=== PATIENT | male | born 1990 | race Caucasian/White ===

== ENCOUNTER 2016-11-02 10:01 | Inpatient (IN) ==
[~2016-11-02 10:01] MED LIST: *HR* FentaNYL (PF) 100 MCG/2 ML VIAL ONE; *HR* Midazolam HCl 2 MG/2 ML VIAL ONE; *HR* Succinylcholine 200 MG/10 ML VIAL IVP ONE; Lidocaine -MPF 2% 2 ML VIAL ONE; Lidocaine -MPF 4% 5 ML AMPUL ONE
[2016-11-02] MEDS ORDERED: CeFAZolin Pre 2,000 MG/100 ML 2,000 MG/100 ML BAG IVPB ONE (10:19)
--- NOTE | 2016-11-02 10:24 | Anesthesia Evaluation PreOp ---
Date of Encounter: 11/02/16 Time of Encounter: 10:22 - Past History Planned Operation: PLIF L5-S1 Cardiac History: Denies any Significant Hx Pulmonary History: Other (uses snuff) PROOF CLERK History: Other (chronic back pain) Other Medical History: GERD (improved S/P Jaycob), Other (anxiety) Anesthesia History: No Prior Anesthetic Complications, Past Anesthesia (Robotic Lap Jaycob) Alcohol Use: occasionally Drug use: none Medications and Allergies Gabapentin [Neurontin] 800 mg PO TID 06/17/16 [History] Cyclobenzaprine [Flexeril] 10 mg PO TID #21 tablet 09/14/16 [Rx] Allergies No Known Allergies Allergy (Verified 10/19/16 08:56) - Meds/Allergy Pre-op Review Medications Reviewed: Yes Allergies Reviewed: Yes Beta Blockers on Current Med List: No Anesthesia Results - Labs Laboratory Tests 10/27/16 10/27/16 10/27/16 13:13 13:13 13:13 WBC 7.1 Hgb 16.1 Hct 47.3 Plt Count 303 PT 11.6 INR 1.1 APTT 29.5 Sodium 140 Potassium 4.0 BUN 9 Creatinine 0.86 Anesthesia Exam O2 Sat Height 1.68 m Height 1.68 m Weight 51.71 kg Weight 51.71 kg O2 Sat by Pulse Oximetry 100 Vital Signs Temp Pulse Resp BP Pulse Ox 97.8 F 70 18 134/94 100 11/02/16 10:17 11/02/16 10:17 11/02/16 10:17 11/02/16 10:17 11/02/16 10:17 Height: 5'6'' Weight: 114 lbs NPO (# of Hours): 8 Pain Scale: 4 Pain Scale Used: Numeric (1 - 10) - HEENT Pupil (Motor): EOMI Mallampati: II Teeth: Normal Oral Opening: Greater than 3 - PROOF CLERK LOC: Oriented PROOF CLERK Motor: Normal RUE, Normal LUE, Normal RLE, Normal LLE, Normal Face PROOF CLERK Sensory: Normal: RUE, LUE, Face, Deficit: RLE, LLE - Cardiac Rhythm: Regular Murmur: None - Pulmonary Breath Sounds: bilateral Clear Respiratory Effort: Symmetrical Anesthesia Assess/Plan ASA Score: 2 Modified [place] Scale for Level of Consciousness: Cooperative, oriented, and tranquil Anesthetic Plan: General Monitoring Plan: Standard Monitors Recovery Plan: PACU
[2016-11-02] MEDS ORDERED: Ringers Solution, Lactated 1,000 ML IVC SCH ×2 (10:30→16:44)
--- NOTE | 2016-11-02 11:25 | History & Physical Report ---
Date of Encounter: 11/02/16 Time of Encounter: 11:24 24 Hour HP Update - Instructions Instructions: If the History and Physical is less than 30 days old and was completed prior to A.M. admission and or procedure and has NOT been updated on calendar day of procedure please complete this update prior to performing procedure. - Update Patient reports changes in Medical Condition: No Changes in examination, assessment, or condition: No Changes in Medication: No Preop tests/diagnostics Reviewed: Yes Pre-Op MRSA Screen: Negative Surgery Remains Indicated: Yes Consent for Planned Operative Procedure(s) Verified: Yes - Pre-Operative Checklist Preoperative Checklist Indicated: No Prophylactic Antibiotic Ordered: Yes Home Medications Include Beta Luci: No Beta Luci Taken Today (Day of Surgery): No Beta Luci Taken Yesterday (Day Prior to Surgery): No Is VTE Prophylaxis Indicated?: Yes
[2016-11-02] MEDS ORDERED: Acetaminophen IV 1,000 MG/100 ML INFUS..BTL IVPB ONE (11:49)
[2016-11-02] MEDS ORDERED: Famotidine 20 MG/2 ML VIAL IVP ONE (11:49)
[2016-11-02] MEDS ORDERED: Gabapentin 300 MG CAPSULE PO STA (11:49)
[2016-11-02] MEDS ORDERED: *HR* Succinylcholine 200 MG/10 ML VIAL IVP ONE (12:30)
[2016-11-02] MEDS ORDERED: *HR* Midazolam HCl 2 MG/2 ML VIAL ONE (12:30)
[2016-11-02] MEDS ORDERED: Lidocaine -MPF 4% 5 ML AMPUL ONE ×2 (12:30)
[2016-11-02] MEDS ORDERED: Lidocaine -MPF 2% 2 ML VIAL ONE (12:30)
[2016-11-02] MEDS ORDERED: *HR* FentaNYL (PF) 100 MCG/2 ML VIAL ONE (12:30)
[2016-11-02] MEDS ORDERED: *HR* Propofol 200 MG/20 ML VIAL IVP ONE ×2 (12:31→12:33)
[2016-11-02] MEDS ORDERED: *HR* Rocuronium Bromide 50 MG/5 ML VIAL ONE (13:14)
[2016-11-02] MEDS ORDERED: *HR* Remifentanil 1 MG VIAL IVP ONE (13:17)
[2016-11-02] MEDS ORDERED: Neostigmine Methylsulfate 3 MG/3 ML SYRINGE ONE (14:01)
[2016-11-02] MEDS ORDERED: Dexamethasone 4 MG/ML VIAL ONE (14:56)
[2016-11-02] MEDS ORDERED: Ondansetron 4 MG/2 ML VIAL ONE (14:56)
[2016-11-02] MEDS ORDERED: *HR* Promethazine 25 MG/ML VIAL IVP PRN (15:10)
[2016-11-02] MEDS ORDERED: *HR* Labetalol 20 MG/4 ML SYRINGE IVP PRN (15:10)
--- NOTE | 2016-11-02 15:28 | Orthopedic Operative Note ---
Date of procedure: 11/02/16 Pre-op diagnosis: Spondylolisthesis, lumbar stenosis Post-op diagnosis: same Operation/Findings: Posterior lumbar interbody fusion L5-S1: The patient successfully underwent general endotracheal anesthesia. The patient was given antibiotics prior to the start of the procedure. Compression boots and stockings were used for deep vein thrombosis prophylaxis. A Winchester catheter was placed. Leads for neuro monitoring were placed on the upper and lower extremities. This included the cranium. The neuro monitoring personnel confirmed there were satisfactory readings prior to the start of the procedure. The patient was turned prone on the Tom table. The back was prepped and draped in the usual sterile fashion. An incision was was marked and centered over the involved L5-S1 levels in the mid line. The incision was deepened through the lumbar fascia. Bovie cautery and Duckworth elevators were used to reflect the paraspinal musculature at the lateral extent of the transverse processes of the involved L5 -S1 levels. Eloisa clamps were placed over the L5 spinous processes. An intraoperative lateral fluoroscopy graft was obtained. A conversation was held between the surgeon and radiologist and both confirmed we had the correct L5-S1 operative levels. We then placed pedicle screws in standard fashion with the aid of fluoroscopy and anatomic landmarks. Briefly a starter awl was used. A gearshift was subsequently used to enter the airplane pilot crop dusting hole via a transpedicular route into the vertebral body. The airplane pilot crop dusting hole was tapped with an undersized instrument, and subsequently four 6.5 x 40 mm pedicle screws were placed bilaterally at the indicated L5 and S1 levels. The screws were tested with the aid of the neurologic monitoring staff via pedicle screw stimulation. All reading suggested there was no significant cortical wall breech. The screws were also evaluated fluoro- graphically and appeared to be in satisfactory position. We then turned our attention to the decompression portion of the procedure. We removed the supraspinous and interspinous ligaments and subsequently the insertion of the ligamentum flavum on the undersurface of the proximal L5 lamina was dislodged with a curette. We then removed the ligamentum flavum as well as undercut the L5-S1 facets at this level to decompress the lateral recesses. We also performed a full Abbasi laminectomy. After the decompression , which was over and above that which was required to place the interbody graft, the foramen and traversing roots at this L5-S1 level were found to be free and patent. We then protected the neural elements including the thecal sac and traversing nerve root on the right with a dural retractor. We made an annulotomy into the L5-S1 disc space and then removed entire disc material using Pituitary instruments. We trialed various size grafts after the endplates were prepared for graft insertion. A 10 x 26 enter body graft fit well within the L5-S1 disc space. We obtained some bone from the right posterior superior iliac spine through us a separate incision and combined with this with the bone which we had saved from the Abbasi laminectomy portion of the procedure. This autograft bone was first placed in the anterior portion of the L5-S1 disc space and additional bone was placed within the interbody graft spacer. We then placed the interbody graft spacer obliquely across the disc space towards the midline while protecting the neural elements with a root retractor. When the graft was found to be in satisfactory position the nutrition aides teacher was removed. We then copiously irrigated the wound. We then decorticated the L5 transverse processes as well as the facet joints and proximal portion of the sacrum of the involved levels to aid in the posterolateral fusion. We placed autograft bone in the lateral gutters over these regions. We then placed rods within the screw heads of the involved L5 and S1 levels and first locked the distal screws and then subsequently locked the proximal screws so as to improve and reduce the spondylolisthesis previously seen. We then closed the wound in layers with 1 Vicryl for the fascia, 2-0 Vicryl. Subcutaneous tissue, and Dermabond was used for skin closure. Sterile dressings were placed over the wound. The patient was turned supine on a hospital bed and extubated. All sponge instruments and needle counts were correct at the end of the procedure. The patient tolerated the procedure well without complications. Anesthesia: GETA Surgeon: Umair Benavidez Jr Estimated blood loss (cc): 100 Condition: stable Disposition: PACU
[2016-11-02] MEDS: *HR* HYDROmorphone (PF) 1 MG/ML SYRINGE IVP PRN ×4 (15:45→16:15)
[2016-11-02] MEDS ORDERED: *HR* HYDROmorphone (PF) 1 MG/ML SYRINGE ONE ×2 (15:46→16:00)
[2016-11-02] MEDS ORDERED: Ketorolac 30 MG/ML VIAL ONE (15:50)
--- NOTE | 2016-11-02 16:19 | Anesthesia Evaluation Post Op ---
Date of Encounter: 11/02/16 Time of Encounter: 16:18 - Vital Signs Vital Signs: Vital Signs/O2 Sat, Most Current Temp Pulse Resp BP Pulse Ox 97.9 F 104 16 122/96 99 11/02/16 15:37 11/02/16 15:57 11/02/16 15:57 11/02/16 15:57 11/02/16 15:57 - Lungs Lungs: Clear Ascult./Percussion - Airway Airway: Non-obstructed - Cardiovascular Regular Rate - Mental Status Mental Status: Alert & Oriented, Answers Appropriately - Pain Pain Scale: 5 Pain Scale used: Numeric (1 - 10) - Nausea Vomiting Nausea Vomiting: Not Present - Hydration Hydration: Ice chips, Has not voided - Discharge PostOp Status: Transfer Patient to floor
[2016-11-02] MEDS ORDERED: Ketorolac 30 MG/ML VIAL IVP ONE (16:24)
[2016-11-02] MEDS ORDERED: *HR* OxyCODONE Immed Rel 5 MG TABLET PO SCH (16:44)
[2016-11-02] MEDS ORDERED: Naloxone 0.4 MG/ML INJ IVP PRN (16:44)
[2016-11-02] MEDS ORDERED: Ondansetron 4 MG/2 ML VIAL IVP PRN (16:44)
[2016-11-02] MEDS: *HR* OxyCODONE Immed Rel 5 MG TABLET PO PRN ×2 (17:18→21:19)
[2016-11-02] MEDS: *HR* Morphine 2 MG/ML SYRINGE IVP PRN (19:16)
[2016-11-02] MEDS ORDERED: ceFAZolin 2,000 MG in D5% in Water 100 ML IVPB SCH (20:30)
[2016-11-02] MEDS: Vancomycin 1,000 MG in D5% in Water 250 ML IVPB SCH (23:03)
[2016-11-03] MEDS: *HR* Morphine 2 MG/ML SYRINGE IVP PRN ×6 (00:39→23:53)
[2016-11-03] MEDS: *HR* OxyCODONE Immed Rel 5 MG TABLET PO PRN ×5 (04:20→22:06)
[2016-11-03] MEDS: Vancomycin 1,000 MG in D5% in Water 250 ML IVPB SCH (08:45)
--- NOTE | 2016-11-03 09:17 | Orthopedics Progress Note ---
<Umair Benavidez Jr - Last Filed: 11/03/16 13:16> Date of Encounter: 11/03/16 Time of Encounter: 13:16 Subjective Interval history: The patient is without complaints. Afebrile vital signs are stable. Incision is clean dry and intact. Neurovascularly intact with regard to bilateral lower extremities. Fires all upper and lower extremity motor groups. Negative straight leg raise. Assessment :stable. Plan mobilize ,continue analgesics, discharge planning. Objective Vital signs: Vital Signs Temp Pulse Resp BP Pulse Ox 11/03/16 11:25 98.6 F 78 16 132/82 97 11/03/16 06:38 98.5 F 93 16 124/76 98 11/03/16 05:08 98.7 F 88 16 120/79 98 11/02/16 23:51 97.8 F 105 18 143/92 98 11/02/16 20:00 98.0 F 103 18 136/93 98 11/02/16 18:41 98.4 F 100 16 134/91 97 11/02/16 17:59 98.6 F 99 16 134/89 98 11/02/16 17:28 97.7 F 88 16 148/99 98 11/02/16 16:56 97.4 F L 75 16 131/90 97 11/02/16 16:37 97.8 F 71 16 123/95 100 11/02/16 16:27 70 16 134/87 100 11/02/16 16:17 79 16 123/88 100 11/02/16 16:07 97.9 F 96 16 132/96 99 11/02/16 15:57 104 16 122/96 99 11/02/16 15:47 108 16 136/75 99 11/02/16 15:37 97.9 F 104 16 111/77 99 Intake and Output 11/02/16 11/03/16 11/03/16 23:59 07:59 15:59 Intake Total 750 / 750 450 / 450 Output Total 200 / 200 1550 / 1550 Balance -200 / -200 -800 / -800 450 / 450 Intake: IV Fluids 250 / 250 250 / 250 Vancocin 1,000 MG In 250 / 250 250 / 250 Dextrose 5% 250 ML @ 167 mls/hr IVPB Q12H [facility] Rx#: [id number] Oral 500 / 500 200 / 200 Output: Urine 200 / 200 1550 / 1550 Other: Meal Breakfast Percent of Meal Consumed 50% Consult Discharge Plan - Plan Referrals: Brad Juarez, IN PROCESSING INSTRUCTOR [Primary Care Provider] - <Mabel Herbert - Last Filed: 11/04/16 10:23> Date of Encounter: 11/03/16 Time of Encounter: 12:00 - Assessment and Plan (1) Spondylolisthesis Current Visit: Yes Status: Chronic Qualifiers: Spinal region: unspecified Qualified Code(s): M43.10 - Spondylolisthesis, site unspecified (2) Lumbar stenosis Current Visit: Yes Status: Chronic Subjective Principal diagnosis: Spondylolisthesis, lumbar stenosis Interval history: POD#1 Posterior lumbar interbody fusion L5-S1 performed 11/02/[address] Benavidez for Spondylolisthesis, lumbar stenosis. Patient seen and examined. Incision c/d/ i. Neurovascualrly intact. Patient wearing back brace as directed. States pain control adequate. Discharge planning will be discussed more in depth on POD#2 after full therapy evaluation. Patient questions answered. Objective Vital signs: Vital Signs Temp Pulse Resp BP Pulse Ox 11/03/16 06:38 98.5 F 93 16 124/76 98 11/03/16 05:08 98.7 F 88 16 120/79 98 11/02/16 23:51 97.8 F 105 18 143/92 98 11/02/16 20:00 98.0 F 103 18 136/93 98 11/02/16 18:41 98.4 F 100 16 134/91 97 11/02/16 17:59 98.6 F 99 16 134/89 98 11/02/16 17:28 97.7 F 88 16 148/99 98 11/02/16 16:56 97.4 F L 75 16 131/90 97 11/02/16 16:37 97.8 F 71 16 123/95 100 11/02/16 16:27 70 16 134/87 100 11/02/16 16:17 79 16 123/88 100 11/02/16 16:07 97.9 F 96 16 132/96 99 11/02/16 15:57 104 16 122/96 99 11/02/16 15:47 108 16 136/75 99 11/02/16 15:37 97.9 F 104 16 111/77 99 11/02/16 10:17 97.8 F 70 18 134/94 100 Intake and Output 11/02/16 11/03/16 11/03/16 23:59 07:59 15:59 Intake Total 750 / 750 Output Total 200 / 200 1550 / 1550 Balance -200 / -200 -800 / -800 Intake: IV Fluids 250 / 250 Vancocin 1,000 MG In 250 / 250 Dextrose 5% 250 ML @ 167 mls/hr IVPB Q12H [facility] Rx#: [id number] Oral 500 / 500 Output: Urine 200 / 200 1550 / 1550 - VTE Documentation of Mechanical Device: Graduated compression elastic hosiery
[2016-11-03] MEDS: diazePAM 5 MG TABLET PO PRN (19:05)
[2016-11-04] MEDS: diazePAM 5 MG TABLET PO PRN ×2 (00:40→23:01)
[2016-11-04] MEDS: *HR* OxyCODONE Immed Rel 5 MG TABLET PO PRN ×5 (03:44→22:12)
[2016-11-04] MEDS: *HR* Morphine 2 MG/ML SYRINGE IVP PRN ×4 (06:12→19:42)
--- NOTE | 2016-11-04 10:42 | Discharge Summary ---
Date of Encounter: 11/04/16 Time of Encounter: 10:40 - Discharge Medications Prescriptions: OxyCODONE Immed Rel [Roxicodone 5 MG] 5 mg PO Q4HR PRN #60 tab PRN Reason: Pain Home Medications: Gabapentin [Neurontin] 800 mg PO TID 06/17/16 [History] Cyclobenzaprine [Flexeril] 10 mg PO TID #21 tablet 09/14/16 [Rx] OxyCODONE Immed Rel [Roxicodone 5 MG] 5 mg PO Q4HR PRN #60 tab 11/04/16 [Rx] Allergies/Adverse Reactions: Allergies No Known Allergies Allergy (Verified 10/19/16 08:56) - Impressions ITS Impressions Lumbar Spine X-Ray 11/02/16 00:00 IMPRESSION: Height and alignment appear to be within normal limits. Orthopedic hardware appears grossly intact on limited imaging. D/ / 11/02/2016 15:41:15 Dany Arellano MD / [facility] Interpreting Provider: Dany Arellano MD Lumbar Spine X-Ray 11/04/16 08:29 IMPRESSION: Stable postsurgical changes at L5-S1. No acute osseous abnormality. Moderate amount of gas is seen throughout the small bowel and colon, likely related to postoperative ileus. D/ / Corinne Ladd MD / Corinne Ladd MD Interpreting Provider: Corinne Ladd MD Date of admission: 11/02/16 16:45 Primary care physician: Brad Juarez CNP Consults: 11/02/16 16:44 Consult to Occupational Therapy [CONS] Routine Comment: Evaluate, develop and implement POC Reason for Consult: Postoperative Consult to Physical Therapy [CONS] Routine Comment: Evaluate, develop and implement POC Reason for Consult: Postoperative Consult to Spine Navigator [CONS] [CONS] Routine - Patient Status Disposition: Home, Self-Care Condition: Good Functional capacity at discharge: independent ambulation Overall status at discharge: patient is progressing back to baseline - Discharge Instructions Follow Up With: Brad Juarez CNP [Primary Care Provider] - - Diet and Activity Activity: as per physical therapy Diet: advance to your usual diet - Hospital Course Hospital course: Mr. Rodriguez is a 25 year old male The patient had an uneventful postoperative course. Progressed from intravenous analgesic needs to oral analgesic needs only. Remained neurovascularly intact and mobilized satisfactorily. All intraoperative and/or postoperative radiographic studies were satisfactory. Patient is discharged with plan for rehabilitation and follow-up in 2 weeks post discharge on analgesic medication and patient's home medications. - Time Spent with Patient Total time spent providing and/or coordinating discharge services: - VTE Documentation of Mechanical Device: Graduated compression elastic hosiery
[2016-11-05] MEDS: *HR* OxyCODONE Immed Rel 5 MG TABLET PO PRN ×2 (02:22→08:36)
[2016-11-05 06:57] VITALS: BP 118/76
== END 2016-11-05 10:58 | disposition home or self-care (01) | DRG 304 ==
LOC: SAMDAY 10:01 → 3NENU 16:45
PROVIDERS: ADMIT Orthopaedic Surgery Orthopaedic Surgery of the Spine; ATTEND Orthopaedic Surgery Orthopaedic Surgery of the Spine